=== PATIENT | male | born 1955 | race Caucasian/White ===

== ENCOUNTER 2020-06-04 16:29 | Inpatient (IN) | payer BC ==
[~2020-06-04] VITALS: Ht 180.3 cm; Wt 73.2 kg
[2020-06-04] MEDS ORDERED: REMERON15 M2 PO (17:39)
[2020-06-04] MEDS ORDERED: VENLAFAXINE75 M1 PO (17:39)
[2020-06-04] MEDS ORDERED: ABILIFY2 MG PO (17:39)
[2020-06-04] MEDS ORDERED: ATARAX,VISTARIL50 MG PO (17:40)
[2020-06-04 19:00] VITALS: BP 137/92
[2020-06-04 23:22] VITALS: BP 132/80
[2020-06-05 06:48] LABS: BASO # 0.1 10*3/uL (0.0-0.1); BASO % 1.1 % (0.0-1.0); EOS # 0.1 10*3/uL (0.0-0.4); EOS % 2.4 % (1.0-4.0); HEMATOCRIT 43.4 % (42.0-52.0); LYMPH # 1.4 10*3/uL (1.3-4.4); LYMPH % 29.8 % (27.0-41.0); MEAN CELL VOLUME 86.5 fl (80.0-94.0); MEAN CORPUSCULAR HGB 29.9 pg (27.0-31.0); MEAN CORPUSCULAR HGB CONC 34.6 g/dl (33.0-37.0); MEAN PLATELET VOLUME 10.3 fl (9.6-12.3); MONO # 0.4 10*3/uL (0.1-1.0); MONO % 8.9 % (3.0-9.0); NEUT # 2.6 10*3/uL (2.3-7.9); NEUT % 57.4 % (47.0-73.0); PLATELET COUNT AUTOMATED 209 10*3/uL (130-400); RED BLOOD COUNT 5.02 10*6/uL (4.50-5.90); RED CELL DISTRI WIDTH 11.4 % (0-14.5); WHITE BLOOD COUNT 4.6 10*3/uL (4.8-10.8)
[2020-06-05 06:59] LABS: ALBUMIN 3.7 gm/dl (3.1-4.5); BUN 18 mg/dl (7-24); CHLORIDE 106 mmol/L (98-107); POTASSIUM 3.9 mmol/L (3.5-5.1); SGOT/AST 15 IU/L (3-35); SGPT/ALT 21 U/L (12-78); SODIUM 141 mmol/L (136-145)
[2020-06-05 07:11] LABS: ALKALINE PHOSPHATASE 82 U/L (45-117); CHOLESTEROL 223 mg/dL (<200); CREATININE 0.72 mg/dL (0.70-1.30); HDL CHOLESTEROL 55 mg/dl (40-60); LDL CHOLESTEROL 136 mg/dL (9-159); TOTAL PROTEIN 7.2 gm/dL (6.4-8.2); TRIGLYCERIDES 158 mg/dl (<150); VLDL CHOLESTEROL 32 mg/dL (6-40)
[2020-06-05 07:40] LABS: VITAMIN D, 25-HYDROXY 32.9 ng/mL (30-100)
[2020-06-05 08:00] VITALS: BP 135/77
[2020-06-05 19:45] VITALS: BP 119/71
[2020-06-06 07:05] VITALS: BP 126/83
[2020-06-06 19:29] VITALS: BP 125/72
[2020-06-07 07:45] VITALS: BP 124/88
[2020-06-07 20:00] VITALS: BP 125/74
[2020-06-08 07:24] VITALS: BP 110/59
[2020-06-08 20:21] VITALS: BP 116/73
[2020-06-09 07:22] VITALS: BP 142/79
[2020-06-09 20:00] VITALS: BP 141/78
[2020-06-10 06:43] VITALS: BP 125/56
[2020-06-10 19:49] VITALS: BP 130/75
[2020-06-11 08:00] VITALS: BP 114/70
[2020-06-11 19:36] VITALS: BP 138/78
[2020-06-12 07:32] VITALS: BP 123/60
[2020-06-12 19:47] VITALS: BP 121/73
[2020-06-13 07:27] VITALS: BP 109/64
[2020-06-13 20:00] VITALS: BP 106/60
[2020-06-14 07:26] VITALS: BP 116/62
[2020-06-14 20:00] VITALS: BP 110/57
[2020-06-15 07:51] VITALS: BP 115/66
[2020-06-15 19:50] VITALS: BP 123/68
[2020-06-16 07:44] VITALS: BP 109/69
[2020-06-16 20:00] VITALS: BP 114/68
[2020-06-17 06:43] LABS: BASO # 0.1 10*3/uL (0.0-0.1); BASO % 0.9 % (0.0-1.0); EOS # 0.3 10*3/uL (0.0-0.4); EOS % 5.1 % (1.0-4.0); HEMATOCRIT 38.1 % (42.0-52.0); LYMPH # 1.6 10*3/uL (1.3-4.4); LYMPH % 28.4 % (27.0-41.0); MEAN CELL VOLUME 86.6 fl (80.0-94.0); MEAN CORPUSCULAR HGB 29.1 pg (27.0-31.0); MEAN CORPUSCULAR HGB CONC 33.6 g/dl (33.0-37.0); MEAN PLATELET VOLUME 9.9 fl (9.6-12.3); MONO # 0.6 10*3/uL (0.1-1.0); MONO % 9.9 % (3.0-9.0); NEUT # 3.1 10*3/uL (2.3-7.9); NEUT % 54.5 % (47.0-73.0); PLATELET COUNT AUTOMATED 212 10*3/uL (130-400); RED CELL DISTRI WIDTH 11.7 % (0-14.5); WHITE BLOOD COUNT 5.7 10*3/uL (4.8-10.8)
[2020-06-17 07:03] LABS: ALBUMIN 3.2 gm/dl (3.1-4.5); ALKALINE PHOSPHATASE 80 U/L (45-117); BUN 18 mg/dl (7-24); CHLORIDE 107 mmol/L (98-107); CREATININE 0.73 mg/dL (0.70-1.30); POTASSIUM 3.9 mmol/L (3.5-5.1); SGOT/AST 16 IU/L (3-35); SGPT/ALT 32 U/L (12-78); SODIUM 142 mmol/L (136-145); TOTAL PROTEIN 6.4 gm/dL (6.4-8.2)
[2020-06-17 07:50] VITALS: BP 109/68
[2020-06-17 19:07] VITALS: BP 135/72
[2020-06-18 07:33] VITALS: BP 119/71
[2020-06-18 20:00] VITALS: BP 114/74
[2020-06-19 07:33] VITALS: BP 102/63
[2020-06-19 19:31] VITALS: BP 113/64
[2020-06-20 08:00] VITALS: BP 121/71
[2020-06-20] MEDS ORDERED: FLUVOXAMINE50 MG PO (09:51)
[2020-06-20] MEDS ORDERED: VISTARIL50 MG PO (09:52)
[2020-06-20] MEDS ORDERED: SEROQUEL25 MG PO (11:53)
[2020-06-20] MEDS ORDERED: ATIVAN0.5 MG PO (12:05)
== END 2020-06-20 13:27 | disposition home or self-care (01) | DRG 885 ==
LOC: 3N 16:29
PROVIDERS: Registered Nurse; ADMIT Psychiatry & Neurology Psychiatry; ATTEND Psychiatry & Neurology Psychiatry
DX: F33.3 Major depressive disorder, recurrent, severe with psychotic symptoms (principal); R45.851 Suicidal ideations; E72.20 Disorder of urea cycle metabolism, unspecified; F90.9 Attention-deficit hyperactivity disorder, unspecified type; F41.0 Panic disorder [episodic paroxysmal anxiety]; F42.9 Obsessive-compulsive disorder, unspecified; R00.0 Tachycardia, unspecified; Z20.828 Contact with and (suspected) exposure to other viral communicable diseases; R73.9 Hyperglycemia, unspecified; E78.2 Mixed hyperlipidemia; Z88.1 Allergy status to other antibiotic agents; Z82.49 Family history of ischemic heart disease and other diseases of the circulatory system

== ENCOUNTER 2020-08-10 15:43 | Inpatient (IN) | payer MEDICARE ==
[~2020-08-10] VITALS: Ht 154.9 cm
[~2020-08-10 15:43] MED LIST: ABILIFY2 MG PO; ATARAX,VISTARIL50 MG PO; ATIVAN0.5 MG PO; ATORVASTATIN CA40 M1 PO; CLOMIPRAMINE HC25 MG PO; CLOMIPRAMINE HC50 MG PO; FLUVOXAMINE50 MG PO; KLONOPIN2 M1 PO; PAROXETINE HCL10 MG PO; REMERON15 M2 PO; SEROQUEL25 MG PO; VENLAFAXINE75 M1 PO; VISTARIL50 MG PO
--- NOTE | 2020-08-10 16:10 | NUR ---
GALLO RIOJAS a 65 year old M admitted via wheel chair from the EMERGENCY ROOM as a emergency 72 hr. hold admission. Arrived on unit at 1610. ALLERGIES: AMOXICILLIN. Vital signs are: [id number] 108/59. 98% ROOM AIR The client signed the following forms with stated understanding: Authorization For The Release of Medical Information, Clothing List, Consent and Release Forms/Receipt of Rights, Acknowledgement of Advance Directive Information, Behavioral Health Consent Form, and Informed Consent of Medications. Admitted under the services of Dr. ZORA RAJPUTTHANH. A search was conducted and hazardous articles were removed. Client was oriented to the unit. BARBARA KEEN PT SIGNED ALL CONSENTS EXCEPT VOLUNTARY ADMISSION D/T PINK SLIP. JOSE L SW AWARE OF ADMISSION.
[2020-08-10 16:32] VITALS: BP 108/59
--- NOTE | 2020-08-10 17:56 | NUR ---
HOSPITALIST NUMBER ONE NOTIFIED OF NEW ADMISSION FOR MEDICAL CONSULT. CONSULT TO BE PLACED UNDER .
--- NOTE | 2020-08-10 19:34 | NUR ---
PSYCHOSOCIAL HX COMPLETED THIS DATE
--- NOTE | 2020-08-10 20:16 | NUR ---
STATES HE WAS GIVEN ANAFRANIL IN THE EMERGENCY ROOM. UNABLE TO FIND WERE HE RECIEVED ANY MEDICATION BUT HE INSISTS HE TOOK THEM. WILL NOT GIVE TILL TOMORROW.
[2020-08-10 20:25] VITALS: BP 104/55
--- NOTE | 2020-08-10 21:23 | NUR ---
RESTING SINCE GETTING KLONOPIN.
--- NOTE | 2020-08-11 00:10 | NUR ---
RESIDENT HERE TO SEE CLIENT
--- NOTE | 2020-08-11 01:23 | NUR ---
24 HR chart check completed.
--- NOTE | 2020-08-11 06:15 | NUR ---
SLEPT WELL POST KLONOPIN FOR ANXIETY. SLEPT 8.5 HOURS MOVING SELF IN BED
[2020-08-11 06:17] VITALS: BP 115/68
--- NOTE | 2020-08-11 09:54 | NUR ---
DR. MCCOY ON UNIT TO ASSESS PATIENT.
--- NOTE | 2020-08-11 14:09 | NUR ---
P: INCREASED CONFUSION, CONSTANT WORRY, TEARFUL, DEPRESSED MOOD WITH INCREASED ANXIETY, NOT ABLE TO MAKE DECISIONS REGARDING SELF CARE, PREOCCUPIED WITH MEDICATIONS. PATIENT CONFUSED ABOUT MEDICATIONS AND OF NURSE TALKING TO HIS GIRLFRIEND. PATIENT THINKS NURSE SPOKE WITH HIS COUSIN. I: ONE ON ONE FOR EMOTIONAL SUPPORT, MEDICATION EDUCATION, ENCOURAGE GROUP PARTICIPATION AND REDIRECTION. R: EFFECTIVE. PATIENT IS ALERT TO PERSON, PLACE, TIME AND SITUATION. MEMORY GAPS NOTED WITH CONSTANT WORRY. DENIES HALLUCINATIONS, DELUSIONS, HI/SI OR PAIN. MOOD IS ANXIOUS, DEPRESSED AND HOPELESS/HELPLESS. MEDICAITON COMPLAINT WITH EDUCATION PROVIDED. Q 15 MINUTE SAFETY CHECKS. INDEPENDENT WITH ACTIVITIES OF DAILY LIVING WITH VERBAL DIRECTION. CONTINENT OF BOWEL AND BLADDER. SET UP FOR MEALS, INTAKE ARE GOOD WITH ADEQUATE FLUIDS. AMBULATORY WITH STEADY GAIT. P: CONTINUE TO MONITOR MOOD AND FOR INCREASED CONFUSION; PROVIDE ONE ON ONE FOR EMOTIONAL SUPPORT, REOREINTATION/DIRECTION NEEDED. ENSURE PATIENT OF BEING SAFE.
--- NOTE | 2020-08-11 14:55 | NUR ---
PATIENT COMPLAINING OF A HEADACHE. PRN TYLENOL 650MG PO GIVEN AT THIS TIME.
--- NOTE | 2020-08-11 16:01 | NUR ---
Shift chart check completed.
--- NOTE | 2020-08-11 16:02 | NUR ---
PATIENT CAME UP TO NURSES STATION STATING "I FEEL A LITTLE BIT BETTER" TYLENOL EFFECTIVE.
--- NOTE | 2020-08-11 16:38 | NUR ---
PRN KLONOPIN 2MG PO GIVEN AT THIS TIME FOR INCREASED ANXIETY. PT CONTINUES WITH CONSTANT WORRY, VISIBLY ANXIOUS AND UPSET, TEARFUL AT TIMES. UNABLE TO CALM WITH NONPHARMALOGICAL INTERVENTIONS. WILL MONITOR FOR EFFECT.
--- NOTE | 2020-08-11 18:31 | NUR ---
KLONOPIN MILDLY EFFECTIVE. PT WAS ABLE TO SIT IN DINING ROOM AND WATCH [employer] GAME FOR A WHILE. PT CONTINUES TO ASK STAFF THE SAME QUESTIONS REPEATEDLY STATING "IS THIS ANXIETY?" POSITIVE REINFORCEMENTS AND EMOTIONAL SUPPORT PROVIDED. ENCOURAGED PT TO UTILIZE COPING SKILLS AND DISTRACTION TECHNIQUES.
[2020-08-11 20:00] VITALS: BP 124/65
--- NOTE | 2020-08-11 21:05 | NUR ---
Patient alert and oriented to person,place,time and situation with memory deficits noted at times. Mood depressed,anxious,but cooperative. Denies SI/HI or hallucinations. No s/s of any responding to internal stimuli noted at this time. Patient compliant with HS medications without any difficulty. Patient tearful at times.Provided 1:1 for emotional support. Redirected/reoriented when needed.Plan to continue to encourage medication compliance. Also continue to provide emotional support and continue to redirect/reorient when needed/appropriate. Will continue to monitor moods/behaviors. Q 15 minute safety checks continued and maintained. See [facility] flowsheet for further documentation.
--- NOTE | 2020-08-12 05:24 | NUR ---
Patient slept approx. 8 hours throughout shift. Q 15 minute safety checks continued and maintained.
[2020-08-12 07:34] VITALS: BP 110/59
--- NOTE | 2020-08-12 08:30 | NUR ---
Treatment Plan meeting was held this a.m. with Dr. Traylor, CHELSIE Lee, RN, AT, UNIT RECEPTIONIST-S and Pharmacy Care Coordinator in attendance. Plan for discharge Next Week. Pt. came to [facility] from Home and will return home at discharge.
--- NOTE | 2020-08-12 09:48 | NUR ---
Nursing screen received and chart was reviewed. Patient recently admitted to medical floor with hypotension. Patient d/c to [facility] for medical management. Patient has a PMH of OCD, ADHD, panic disorder and major depressive disorder. If patient has a decline in ADLs, transfers and functional mobility please send OT orders. Thank you. Anupama Pardo OTR/L
--- NOTE | 2020-08-12 09:50 | NUR ---
Met with pt this AM. Pt was visibly anxious and was tearful at times. Pt ruminated on admittance to U vs returning to his home from the [facility] medical floor. Assisted pt in finding the positive of U admission. Pt voiced concern about proper dispensing of his medications when he returns home. Informed pt that this can be managed by medication blister packs from a pharmacy or possibly the nurse [facility] coming to pt's apartment to set-up pt's medication box. Pt voiced concern about his car being parked near the [facility] along the street. Informed pt that this brief writer would make a call about pt's car. Pt then voiced concern about how he would get to his car from [facility] when pt is discharged. Reassured pt that this will be worked out. Pt then voiced concern about his [facility] STOCK CONTROL CLERK being informed about new med changes while pt is in the U. Informed pt that Lydia Quinn STOCK CONTROL CLERK will be provided medication updates prior to pt's discharge. Encouragement and support provided to pt throughout conversation.
--- NOTE | 2020-08-12 10:00 | NUR ---
PT RESTING QUIETLY AT THIS TIME
--- NOTE | 2020-08-12 11:14 | NUR ---
PT RESTING QUIETLY AT THIS TIME
--- NOTE | 2020-08-12 11:35 | NUR ---
PT AWAKE AND IN DINING ROOM AWAITING LUNCH. STATES THAT HE DOES NOT NOTICE ANY SIGNIFICANT CHANGE IN FOCUS OR ANXIETY FROM AM DOSE OF RITALIN. EDUCATED PROVIDED AT THIS TIME. EMOTIONAL SUPPORT PROVIDED AT THIS TIME.
--- NOTE | 2020-08-12 11:43 | NUR ---
PHYSICAL THERAPY Nursing screen received and chart reviewed. Patient transferred from medical floor to U. New PT order required to continue skilled PT services, if warranted. Thank you. Zina Alfaro,PT,DPT
--- NOTE | 2020-08-12 12:15 | NUR ---
PT C/O FEELINGS OF INCREASING SADNESS AND FEELING ALONE. PT PROVIDED WITH EMOTIONAL SUPPORT. PROVIDED WITH 1:1 TO EXPLORE FEELINGS, PT STATES THAT HIS GIRLFRIEND LIVES 45 MINUTES AWAY FROM HIM AND SO HE FEELS ALONE WHICH MAKES HIM SAD. PT STATES THAT HE WILL GO LAY DOWN AND TAKE A NAP BUT "KNOWS HE SHOULDN'T BE SLEEPING ALL DAY". PT EDUCATED ON TREATMENT PLAN, ACKNOWLEDGEMENT OF ADJUSTMENT PERIOD TO BEING HOSPITALIZED, AND PROVIDED WITH REASSURANCE. PT STATES "THANK YOU" AND WALKED TO ROOM TO REST.
--- NOTE | 2020-08-12 13:45 | NUR ---
pt in group with fitness coordinator.
--- NOTE | 2020-08-12 13:46 | NUR ---
Phoned [facility] [employer] and spoke to a dispatcher in regards to the status of pt's car being parked on the street near the [facility]. The dispatcher stated that as long as the car is legally parked, there will be no issues with the car remaining there while pt is in the [facility].
--- NOTE | 2020-08-12 14:58 | NUR ---
pt in group with practical nurse clinical coordinator
--- NOTE | 2020-08-12 15:48 | NUR ---
ASSESSMENT AND 1:1 SPENT A CONSIDERABLE AMOUT OF TIME WITH PT THIS AFTERNOON. PT EXPRESSED ANXIETY OVER THE SAME ISSUES BEFORE BUT PT WAS ABLE TO SIT FOR THE WHOLE TIME AND FOCUS ON OUR CONVERSATION. PT IS STILL RUMINATING AND HAVING INTRUSIVE THOUGHTS BUT NOT BAD HIS PREVIOUS ADMISSION. PT WAS GIVEN POSITIVE REINFORCEMENTS AND HIS SUGGESTED FOCUS IS "I HAVE CHOICES" PT IS AWARE OF NEW TREATMENT PLAN AND GOALS AND THAT IF HE IS UNCOMFORTABLE IN HIS ROOM AND CAN COME OUT, IF HE IS UNCOMFORTABLE IN THE DAYROOM, HE CAN LEAVE, IF HE FEELS TEARFUL HE CAN GO INTO A ROOM TO CRY FOR A LITTLE BIT, ETC. PT WAS GIVEN A NEW TESTAMENT AND A TABLET TO USE DISTRACTION FOR THIS EVENING.
--- NOTE | 2020-08-12 17:17 | NUR ---
PT GIVEN KLONOPIN 1MG PER PRN ORDER FOR FEELINGS OF "NERVOUSNESS". PT STATES HE IS ALSO TRYING TO READ AND WATCH MOVIES TO HELP DISTRACT HIM.
[2020-08-12 19:03] VITALS: BP 114/59
--- NOTE | 2020-08-12 21:12 | NUR ---
Patient alert and oriented to person,place,time and situation with memory deficits noted at times. Mood depressed,anxious,isolative to room,but cooperative. Denies SI/HI or hallucinations. No s/s of any responding to internal stimuli noted at this time. Patient compliant with HS medications without any difficulty. Patient tearful at times.Provided 1:1 for emotional support. Redirected/reoriented when needed.Plan to continue to encourage medication compliance. Also continue to provide emotional support and continue to redirect/reorient when needed/appropriate. Will continue to monitor moods/behaviors. Q 15 minute safety checks continued and maintained. See [facility] flowsheet for further documentation.
--- NOTE | 2020-08-12 22:03 | NUR ---
Patient resting comfortably in bed at this time.
--- NOTE | 2020-08-12 23:21 | NUR ---
Patient continues to be resting comfortably in bed with eyes closed.
--- NOTE | 2020-08-13 00:29 | NUR ---
Patient continues to rest comfortably in bed with eyes closed.
--- NOTE | 2020-08-13 01:12 | NUR ---
Patient resting comfortably in bed with eyes closed.
--- NOTE | 2020-08-13 02:00 | NUR ---
Patient resting comfortably in bed with eyes closed.
--- NOTE | 2020-08-13 03:05 | NUR ---
Patient resting comfortably with eyes closed.
--- NOTE | 2020-08-13 04:15 | NUR ---
Patient continues to rest comfortably in bed with eyes closed.
--- NOTE | 2020-08-13 05:12 | NUR ---
Patient continues to rest comfortably in bed with eyes closed.
--- NOTE | 2020-08-13 05:54 | NUR ---
Patient slept approx. 8.5 hours throughout shift. Q 15 minute safety checks continued and maintained.
[2020-08-13 07:44] VITALS: BP 130/68
--- NOTE | 2020-08-13 08:00 | NUR ---
PT C/O BEING "SO SAD". PT IS VERY TEARFUL. PROVIDED WITH EMOTIONAL SUPPORT. DISCUSSED DEPRESSION AND IT'S PROCESS. PT VERBALIZES UNDERSTANDING, STATES HE WOULD LIKE TO GO INTO DINING ROOM AND WATCH A MOVIE WITH PEERS. WILL CONTINUE TO MONITOR Q15 MIN PER POLICY.
--- NOTE | 2020-08-13 08:30 | NUR ---
Treatment Plan meeting was held this a.m. with Dr. Traylor via telephone, ROLLER COASTER DESIGNER Rosa, RN, AT, FOUNDRY HELPER-S and Customer Solutions Coordinator in attendance. Plan for discharge Next Week. Pt. will return home at discharge.
--- NOTE | 2020-08-13 09:00 | NUR ---
PT ATTEMPTED TO GO WATCH A MOVIE WITH PEERS IN GROUP ROOM, SAT ACROSS FROM A PEER WHO UPSET HIM, PT BECAME VERY TEARFUL STATING "I DIDN'T WNAT TO MAKE HER MAD". PT ENCOURAGED TO PROVIDE PEER WITH SPACE AND SIT IN ARM CHAIR IN THE BACK OF THE ROOM. PT IN AGREEMENT. WENT INTO DAY ROOM, SAT AND DRANK FLUIDS. WILL CONTINUE TO MONITOR Q15 MIN PER POLICY
--- NOTE | 2020-08-13 10:52 | NUR ---
Met with pt this AM individually. Pt's anxiety was slightly improved. He did have short periods of time when he was tearful. Pt was tearful when he spoke of how he used to be when he was able to enjoy life with his girlfriend Krys. Provided support and affirmed to pt that he will have good times again in his future. Pt voiced concern about being in the activity room with a patient that was being unkind to him. Confirmed to pt that pt has a choice to be in that room or to go to his room or a quiet room. Pt voiced understanding. Continued to provide support and reassurance to pt.
--- NOTE | 2020-08-13 11:03 | NUR ---
Left a voicemail message for [facility] case management director Tate Wheat. Await a return call.
--- NOTE | 2020-08-13 11:37 | NUR ---
AM GROUP PT ATTENDED MORNING GROUP THERAPY BUT STATED THAT HE WAS UNABLE TO PARTICIPATE BUT WOULD OBSERVE. PT CONTINUALLY EXPRESSED ANXIOUSNESS BUT HAD NO OUTWARD SYMPTOMS AND DID NOT WEEP LIKE HE DID YESTERDAY. PT WAS RUMINATING AND WAS UNABLE TO PARTICIPATE IN THE GROUP CONVERSATION. PT BEGAN PICKING OUT THINGS IN THE ROOM THAT WERE "BOTHERING" HIM, THE WORDS ON THE WALL, THE LIGHT FIXTURE, THE GLARE ON THE TV, ETC. PT WAS GIVEN THE CHOICE TO LEAVE THE ROOM IF IT WAS TOO OVERWHELMING. PT LEFT THE DAYROOM AND DID NOT RETURN.
--- NOTE | 2020-08-13 15:43 | NUR ---
PM GROUP PT ATTENDED AFTERNOON GROUP THERAPY OFF AND ON. PT SAT TO PAINT WITH WATERCOLORS AT A TABLE WITH PEERS AND ASKED, "CAN YOU AND I GO INTO THE OTHER ROOM AND LOOK AT THE BIBLE VERSES LIKE WE DID LAST TIME" PT FOCUSED ON THIS AND WOULD STOP PAINTING, LEAVE TO GO LAY DOWN, RETURN IN A FEW MINUTES AND ASK AGAIN. PT WAS TOLD THAT WE COULD DO THIS THE LAST FEW MINUTES OF GROUP BUT THAT IT WOULD BE IN THE DAYROOM. PT ACCEPTED THIS AND WAS ABLE TO FOCUS WHEN REMINDED. PT CONTINUALLY RUMINATES BUT EXHIBITED NO SIGNS OF ANXIETY OR CRYING.
--- NOTE | 2020-08-13 17:10 | NUR ---
PT'S TEARFULNESS AND NERVOUSNESS EASILY REDIRECTED WITH DIVERSIONAL ACTIVITIES. PT WILL BECOME TEARFUL FOR BRIEF TIME, ABLE TO VERBALIZE FEELINGS AND THOUGHT PROCESSES. PT STATES THAT HE REMAINS "SO SAD", BUT AGREES TO GIVE MEDICATION AND TREATMENT PLAN A CHANCE. EDUCATED ON BOTH. DOES STATE THAT HE DOES NOT BELIEVE HE HAS NOTICED ANY BENEFITS SUCH INCREASE IN FOCUS, ATTENTION, OR A DECREASE IN ANXIOUSNESS FROM RITALIN. PT IN DINING ROOM EATING SUPPER WITH PEERS. MONITOR Q15 MIN PER POLICY FOR SAFETY
[2020-08-13 19:08] VITALS: BP 120/73
--- NOTE | 2020-08-13 21:36 | NUR ---
Patient alert and oriented to person,place,time and situation with memory deficits noted at times. Mood depressed,anxious,isolative to room,but cooperative. Denies SI/HI or hallucinations. No s/s of any responding to internal stimuli noted at this time. Patient compliant with HS medications without any difficulty. Patient tearful at times.Provided 1:1 for emotional support. Redirected/reoriented when needed.Plan to continue to encourage medication compliance. Also continue to provide emotional support and continue to redirect/reorient when needed/appropriate. Will continue to monitor moods/behaviors. Q 15 minute safety checks continued and maintained. See [facility] flowsheet for further documentation.
--- NOTE | 2020-08-14 05:50 | NUR ---
Patient slept approx. 8 hours throughout shift. Q 15 minute safety checks continued and maintained.
[2020-08-14 07:28] VITALS: BP 131/78
--- NOTE | 2020-08-14 08:30 | NUR ---
Treatment Plan meeting was held this a.m. with Dr. Traylor via telephone, MATT Lee RN, AT, PHOSPHORIC ACID OPERATOR-S and Log Rafter. Plan for discharge Next week. Pt. will return home at discharge.
--- NOTE | 2020-08-14 11:44 | NUR ---
AM GROUP/LIGHT THERAPY AND DISCUSSION PT ATTENDED MORNING GROUP THERAPY AND PARTICIPATED IN ALL ACTIVITIES. PT WAS LESS ANXIOUS AND ABLE TO PARTICIPATE IN THE DISCUSSION AND FOCUS ON A CRAFT. PT WOULD OCCATIONALLY TRY TO TALK ABOUT HIS SADDNESS AND INTRUSIVE THOUGHTS BUT WAS REDIRECTED INTO CONCENTRATING ON THE TASK AT HAND. DESPITE SAYING THAT HE COULD NOT FOCUS, PT DEMONSTRATED OTHERWISE.
--- NOTE | 2020-08-14 15:22 | NUR ---
Met with pt individually this AM and again early in the afternoon. Pt was exhibiting improvement from his anxiety - able to sit still, very brief episodes of tearfulness, ability to converse and problem solve, and displaying a calm affect. Pt would ruminate on his past experiences with his girlfriend Krys and then state that he was sad because he won't have those experiences again. Provided support to pt and reassured pt that he will have future experiences that he will enjoy. Pt spoke of things he would like to accomplish now that he is retired. Praised pt for having goals for his future. Continued to offer support and affirmations to pt. Pt's response was positive.
--- NOTE | 2020-08-14 15:31 | NUR ---
PRN TYLENOL 650MG PO GIVEN AT THIS TIME PER PT REQUEST FOR C/O HEADACHE RATED LEVEL "2 OR 3" OUT OF 10 ON PAIN SCALE. WILL MONITOR FOR EFFECT.
--- NOTE | 2020-08-14 15:44 | NUR ---
PM GROUP/LEISURE INTERESTS PT ATTENDED AFTERNOON GROUP THERAPY AND PARTICIPATED BY WORKING WITH HIS SCRIPTURES. PT STILL RUMINATES BUT IS EASILY REMINDED TO "STAY IN TODAY". PT WAS FAR LESS WORRYSOME, WAS ABLE TO SIT FOR THE ENTIRE GROUP AND WORK WITH FOCUS. P
--- NOTE | 2020-08-14 18:05 | NUR ---
P- PT REPORTS CONTINUED FEELINGS OF DEPRESSION AND ANXIETY. HOWEVER, PT APPEARS TO BE MORE CALM, LESS FRETFUL AND TEARFUL, PT'S THOUGHT PROCESSES APPEAR MORE CLEAR AND ORGANIZED. I- ORIENTATION, MOOD AND BEHAVIORS ASSESSED. ASSESSED PT FOR SI/HI, INTENT OR PLAN. ASSESSED FOR S/S HALLUCINATIONS, PARANOIA AND/OR DELUSIONS. MEDICATIONS ADMINISTERED PER PHYSICIAN'S ORDERS. POSITIVE AFFIRMATIONS AND EMOTIONAL SUPPORT PROVIDED. ENCOURAGED PT TO ATTEND AND PARTICIPATE IN [place] GROUPS AND ACTIVITIES. R- PT IS ALERT AND ORIENTED X4. MEMORY APPEARS TO BE INTACT. RESPS EASY AND EVEN ON ROOM AIR. PT REPORTS CONTINUED DEPRESSED MOOD WITH ANXIETY, HOWEVER, PT APPEARS MUCH MORE CALM AND ORGANIZED. LESS FRETFUL AND TEARFUL. PT IS ABLE TO EXPRESS SELF MORE CLEARLY AND IS NOT NOTED TO BE REPETITIVE HE WAS PREVIOUSLY. PT PROVIDED WITH POSITIVE AFFIRMATIONS AND EMOTIONAL SUPPORT WHICH PT RECIEVES WELL. PT DENIES SI/HI, INTENT OR PLAN. PT DENIES HALLUCINATIONS, NO RESPONSE TO INTERNAL STIMULI NOTED. NO PARANOIA OR DELUSIONS NOTED. PT IS MEDICATION COMPLIANT WITHOUT DIFFICULTY. KLONOPIN 0.5MG PO GIVEN AT 1722 PER PT REQUEST FOR C/O ANXIETY. APPEARS TO BE EFFECTIVE. PT VOICES NO FURTHER C/O AT THIS TIME. NO DISTRESS NOTED. P- PLAN TO CONTINUE CURRENT TREATMENT, CONTINUE TO MONITOR MOOD AND BEHAVIORS. PROVIDE APPROPRIATE REORIENTATION AND REDIRECTION NEEDED. CONTINUE TO ENCOURAGE MEDICATION COMPLIANCE WELL GROUP ATTENDANCE AND PARTICIPATION.
[2020-08-14 19:08] VITALS: BP 114/70
[2020-08-14 19:24] VITALS: BP 114/70
--- NOTE | 2020-08-15 05:41 | NUR ---
PATIENT OBSERVED ON Q 15 MIN CHECKS TO HAVE SLEPT APPROX 9 HOURS UNINTERRUPTED. NO DISTRESS NOTED.
[2020-08-15 07:30] VITALS: BP 138/72
--- NOTE | 2020-08-15 08:30 | NUR ---
Treatment Plan meeting was held this a.m. with Dr. Traylor, RN, AT, SHADE BANDER-S and Regulatory Process Manager in attendance. Plan for discharge Next Week. Pt. will return Home at discharge and [facility].
--- NOTE | 2020-08-15 11:47 | NUR ---
AM GROUP PT ATTENDED MORNING GROUP THERAPY AND PARTICIPATED BY READING THE NEWSPAPER. PT ATTEMPTED SEVERAL TIMES TO RUMINATE AND DISCUSS HIS "SADDNESS" OF YESTERDAY BUT WAS EASILY REDIRECTED.
--- NOTE | 2020-08-15 12:29 | NUR ---
P: PT ANXIOUS AND TEARFUL AT TIMES, STATING "I AM JUST AFRAID, I M NOT SURE WHAT TO DO, I KNOW I CAN'T CONTINUE TO DEPEND UPON A PLACE LIKE THIS, BUT ITS SO OVERWHELMING WHEN I GO HOME, I HAVE TO MAKE ALL THE DECISIONS TO WHAT TO HAVE FOR LUNCH AND DINNER AND BREAKFAST." PT REPORTS THINKING ABOUT SUICIDE TO DR BLAKELY. I: PROVIDE EMOTIONAL SUPPORT AND 1:1 FOR PT TO VOICE FEELINGS, ENCOURAGE MED COMPLIANCE AND PROVIDE MED EDUCATION, CONTINUE TO PROVIDE POSITIVE REASSURANCE, ENCOURAGE PT TO VOICE SUICIDAL THOUGHTS AND VERBALLY CONTRACT FOR SAFETY. R: PT ALERT TO PERSON, PLACE, TIME AND SITUATION. PT MED COMPLIANT WITHOUT DIFFICULTY, MED EDUCATION PROVIDED. PT VISIBLY LESS ANXIOUS, 1:1 AND POSITIVE REASSURANCE EFFECTIVE. PT DENIES ANY SUICIDAL THOUGHTS AT THIS TIME, VERBALLY CONTRACTS FOR SAFETY IF SUCH THOUGHTS ARISE. NO HALLUCINATIONS OR DELUSIONS NOTED. PT AMBULATORY THROUGHOUT UNIT, GAIT STEADY.PT CONTINENT OF BOWEL AND BLADDER. P: MONITOR PT BEHAVIORS ON Q15 MIN SAFETY CEHCKS, ENCOURAGE MED COMPLAINCE AND PROVIDE MED EDUCATION, ENCOURAGE GROUP PARTICIPATION AND SOCIALIZATION, PROVIDE EMOTIONAL SUPPORT AND 1:1 FOR PT TO VOICE FEELINGS, CONTINUE TO PROVIDE POSITIVE REASSURANCE, ENCOURAGE PT TO VOICE SUICIDAL THOUGHTS AND VERABLLY CONTRACT FOR SAFETY IF SUCH THOUGHTS ARISE.
--- NOTE | 2020-08-15 15:23 | NUR ---
pt c/o haeadche requested tylenol. pt medicated with tylenol 650 mg po prn per orders. will continue to monitor
--- NOTE | 2020-08-15 15:51 | NUR ---
PM GROUP/FUN AND GAMES PT ATTENDED AFTERNOON GROUP THERAPY AND PARTICIPATED IN PUTTING THE JIGSAW PUZZLE TOGETHER AND WORKING WITH HIS SCRIPTURES. PT MADE A POINT OF SAYING, "VIRAL, WHEN YOU DO YOUR NOTES ON THE PATIENTS, WILL YOU WRITE HOW NERVOUS I WAS TODAY AND HOW I CAN'T FOCUS ON ANYTHING HARDLY?" I EXPLAINED TO PT THAT I WRITE MY BEST JUDGMENT ON WHAT I OBSERVE. PT WAS CONTENT WITH THAT AND SAT FOR THE REMAINING HOUR FOCUSED AND ON TASK. PT WAS NOT TEARFUL WHEN I LEFT GROUP THIS AFTERNOON BEFORE. PT IS TRENDING TOWARDS IMPROVEMENT, NOT TEARFUL OR UNABLE TO FOCUS.
--- NOTE | 2020-08-15 17:30 | NUR ---
NO FURTHER C/O HEADACHE NOTED
[2020-08-15 20:00] VITALS: BP 104/72
--- NOTE | 2020-08-15 23:01 | NUR ---
P-ANXIETY. I-PROVIDE 1:1 WITH THERAPEUTIC INTERVENTIONS. ENCOURAGE USE OF COPING SKILLS AND LOW STIMULI ENVIRONMENTS TO HELP CALM. ENCOURAGE MEDICATION COMPLIANCE AND EDUCATE. MONITOR SLEEP. R-PATIENT ALERT AND ORIENTED X4. PT INTERACTIVE WITH PEERS THIS HS, SAT IN DINING ROOM AND PARTICIPATED IN PUTTING A PUZZLE TOGETHER. PT STATED HE WAS DOING OKAY TODAY BUT WAS STARTING TO GET ANXIOUS BUT UNDERSTANDS THAT THE MEDICATIONS TAKE TIME TO WORK AND HE HAS TO WORK MORE ON HIS COPING SKILLS. PT OTHERWISE, CALM, PLEASANT. PT DENIES SI/HI, HALLUCINATIONS, OR PAIN. PT MEDICATION COMPLIANT WITHOUT DIFFICULTY AFTER REVIEW. PT AMBULATORY WITH STEADY GAIT, INDEPENDENT IN ADLS, CONTINENT OF BOWEL AND BLADDER, NO DISTRESS NOTED. P-CONTINUE TO MONITOR MOOD AND BEHAVIORS. MAINTAIN Q 15 MIN CHECKS AND PRN FOR SAFETY.
--- NOTE | 2020-08-16 06:16 | NUR ---
PATIENT SLEPT APPROX 8 HOURS THIS SHIFT UNINTERRUPTED. NO DISTRESS NOTED.
--- NOTE | 2020-08-16 06:56 | NUR ---
24 HOUR CHART CHECK COMPLETED.
[2020-08-16 07:42] VITALS: BP 135/90
--- NOTE | 2020-08-16 08:30 | NUR ---
Treatment Plan meeting was held this a.m. with Dr. Traylor via telephone, ASSEMBLER EQUIPMENT Rosa, RN, AT, HELICOPTER DISPATCHER-S and Closing Coordinator in attendance. Plan for discharge Next week. Pt. will return home at discharge.
--- NOTE | 2020-08-16 11:39 | NUR ---
AM GROUP PT ATTENDED MORNING GROUP THERAPY AND PARTICIPATED IN ALL ACITIVITES. DESPITE PT STATING THAT HE WAS UNABLE TO CONCENTRATE, PT SAT AND DID WORK WITH NO PROBLEM. PT WAS ABLE TO PARTICIPATE IN CONVERSATION WITH A MALE PEER WITHOUT EXPRESSING SADDNESS, ANXIETY, OR DEPRESSION. PT ATTEMPTED THESE TOPICS WITH THIS MANAGER LEGAL BUT WAS IMMEDIATELY REDIRECTED.
--- NOTE | 2020-08-16 12:08 | NUR ---
Met with pt early this AM. Pt stated that he was feeling anxious and sad. Pt attempted to be tearful but it was short lived as this technical report writer would direct pt to a topic. Offered affirmations to pt and encouragement. Pt responded well to this.
--- NOTE | 2020-08-16 15:39 | NUR ---
PM GROUP/GRATITUDE PT ATTENDED AFTERNOON GROUP THERAPY AND PARTICIPATED IN ALL ACTIVITIES. PT ATTEMPTED TO RUMINATE AND DISCUSS SADDNESS BUT WAS IMMEDIATELY REDIRECTED. PT EXHIBITED NO TEARFULNESS OR SIGNS OF ANXIETY WHILE IN GROUP.
--- NOTE | 2020-08-16 16:45 | NUR ---
PT ALERT TO PERSON, PLACE, TIME AND SITUATON. PT MED COMPLIANT WITHOUT DIFFICULTY, MED EDUCATION PROVIDED. PT REPORTS FEELING ANXIOUS AT TIMES, WILL CALM ONCE POSITIVE RE-ENFORCEMENT AND REASSURANCE PROVIDED. PT QUESTIONS STAFF ON HOW THEY FEEL HE IS DOING AND IF HE DOING THE RIGHT THING. NO HALLUCINATIONS OR DELUSIONS NOTED. PT DENIES ANY SUICIDAL THOUGHTS, VERBALLY CONTRACTS FOR SAFETY IF SUCH THOUGHTS ARISE. PT AMBULATORY THROUGHOUT UNIT, GAIT STEADY. PT CONTINENT OF BOWEL AND BLADDER. PLAN IS TO MONITOR PT BEHAVIORS ON Q15 MIN SAFETY CHECKS, ENCOURAGE MED COMPLIANCE AND PROVIDE MED EDUCATION, CONTINUE TO PROVIDE POSITIVE REASSURANCE AND RE-ENFORCEMENT, PROVIDE EMOTIONAL SUPPORT AND 1:1 FOR PT TO VOICE FEELINGS.
[2020-08-16 19:08] VITALS: BP 106/69
--- NOTE | 2020-08-16 21:12 | NUR ---
24 HR chart check completed.
--- NOTE | 2020-08-17 00:50 | NUR ---
ALERT AND ORIENT X4. PLEASANT MOSTLY AND ENJOYS INTERACTION WITH STAFF. BECOMES ANXIOUS AND WEEPY. CALMS DOWN WITH POSITIVE REINFORCEMENT AND REASSURANCE THAT HE IS DOING BETTER AND THE RIGHT THING. NO SI/HI. NO DELUSIONS. CONTRACTED FOR SAFETY. AMBULATES FREELY ON UNIT WITH A STEADY GAIT. CONT OF BOWEL AND BLADDER. WILL CONTINUE TO ENCOURAGE 1:1 AND PROVIDE POSITIVE REINFORCEMENT. IS MED COMPLIANT. WILL MONITOR MOOD AND BEHAVIOR AND MAINTAIN 15 MIN SAFETY CHECKS.
--- NOTE | 2020-08-17 06:06 | NUR ---
PATIENT SLEPT OVER 8 HOURS LAST NIGHT
[2020-08-17 07:52] VITALS: BP 106/64
--- NOTE | 2020-08-17 10:15 | NUR ---
DR KEN ON UNIT TO ASSESS PT, UPDATE PROVIDED.
--- NOTE | 2020-08-17 12:39 | NUR ---
PT ALERT TO PERSON, PLACE, TIME AND SITUATION. PT MED COMPLIANT WITHOUT DIFFICULTY, MED EDUCATION PROVIDED. PT CALM, MOOD IS STABLE AT THIS TIME. PT REPORTS FEELING BETTER. NO HALLUCINATIONS OR DELUSIONS NOTED. PT DENIES ANY SUICIDAL THOUGHTS OR BEHAVIORS, VERBALLY CONTRACTS FOR SAFETY IF SUCH THOUGHTS ARISE. PT SPENT MOST OF THE MORNING IN THE DINING ROOM WITH MALE PEERS CONVERSING AND COLORING. PT CONTINENT OF BOWEL AND BLADDER. PLAN IS TO MONITOR PT BEHAVIORS ON Q15 MIN SAFETY CHECKS, ENCOURAGE MED COMPLIANCE AND PROVIDE MED EDUCATION, PROVIDE EMOTIONAL SUPPORT AND 1:1 FOR PT TO VOICE FEELINGS, CONTINUE TO PROVIDE POSITIVE RE-ENFORCEMENTS AND REASSURANCE.
[2020-08-17 20:00] VITALS: BP 107/80
--- NOTE | 2020-08-18 00:56 | NUR ---
P-ANXIOUS I-REDIRECTION WITH 1:1 THERAPEUTIC INTERVENTIONS AND PRESENT REALITY. EDUCATE AND ENCOURAGE MEDICATION COMPLIANCE R-PATIENT MEDICATION COMPLIANT AT HS. PATIENT PROVIDED NOURISHMENT AND FLUIDS AT HS. PATIENT INTERACTING WITH PEERS IN DINING AREA. PATIENT ANXIOUS WHEN ATTEMPTING TO CALL JC MCGOVERN. PATIENT UPSET WHEN JC MCGOVERN DID NOT ANSWER PHONE. PATIENT REDIRECTED AND ABLE TO CALM DOWN. PATIENT WITH NO ANY HALLUCINATIONS OR DELUSIONS. PATIENT WITH NO HOMICIDAL OR SUICIDAL IDEATIONS. P-CONTINUE TO ENCOURAGE MEDICATION COMPLIANCE, CONTINUE TO PRESENT REALITY, ENCOURAGE GROUP THERAPY WHILE AWAKE
--- NOTE | 2020-08-18 06:44 | NUR ---
PATIENT SLEPT 7 HOURS OF UNINTERRUPTED SLEEP THROUGHOUT SHIFT. Q 15 MINUTE CHECKS MAINTAINED. 24 HR chart check completed.
--- NOTE | 2020-08-18 06:45 | NUR ---
PATIENT SLEPT >8 HOURS OF UNINTERRUPTED SLEEP THROUGHOUT SHIFT. Q 15 MINUTE CHECKS MAINTAINED. 24 HR chart check completed.
[2020-08-18 07:18] VITALS: BP 127/62
--- NOTE | 2020-08-18 10:48 | NUR ---
DR MARIANO ON UNIT TO ASSESS PT, UPDATE PROVIDED.
--- NOTE | 2020-08-18 10:48 | NUR ---
DR MARIANO ON UNIT TO ASSESS PT, UPDATE PROVIDED.
--- NOTE | 2020-08-18 13:11 | NUR ---
P: PT REPORTS FEELING ANXIOUS STATING "I'M JUST AFRAID OF THE OUTSIDE, IT'S SO DREARY, AND THE WIND IS BLOWING AND IT'S RAINING AND THEN I THINK ABOUT MY CAR AND DRIVING HOME." I: PROVIDE EMOTIONAL SUPPORT AND 1:1 FOR PT TO VOICE FEELINGS, ENCOURAGE MED COMPLIANCE AND PROVIDE MED EDUCATION, ENCOURAGE PT TO UTILIZE PREVIOUS LEARNED COPING SKILLS, ENCOURAGE PT TO PARTICIPATE IN GROUPS/ACTIVITES AND USE DIVERSIONAL ACTIVITIES TO TAKE HIS MIND OF HIS WORRIES, PROVIDE LOW STIMULATION ENVIRONMENT FOR PT TO CALM, PROVIDE POSITIVE RE-ENFORCEMENTS AND REASSURANCE R: PT ALERT TO PERSON, PLACE, TIME AND SITUATION. PT MED COMPLIANT WITHOUT DIFFICULTY, MED EDUCATION PROVIDED. PT CALM, CONTINUES TO REPORT FEELING ANXIOUS AT TIMES. THIS NURSE PROVIDED POSITIVE REASSURANCE AND PT STATED "BUT WHY AM I AFRAID? ITS JUST SO DREARY AND I DON'T KNOW WHAT TO DO, I NEED TO DRIVE FROM HERE WHEN IT'S TIME TO GO BUT I'M AFRAID. DON'T YOU HAVE A PSYCHIATRIST FOR ME TO TALK TO?" THIS NURSE ADVISED PT THAT THE PRINTED CIRCUIT BOARD PANELS TRIMMER WAS HERE EARLIER TODAY AND HE SPOKE WITH HER, PT STATED "WELL OK I'LL GUESS I'LL TALK TO YOU THEN." NURSE PROVIDED EMOTIONAL SUPPORT AND 1:l FOR PT TO VOICE FEELINGS, PT STATED "OK I'M GOING TO TRY AND LAY DOWN NOW. PT DENIES ANY HALLUCINATIONS OR DELUSIONS. PT DENIES ANY SUICIDAL THOUGHTS AT THIS TIME, STATED "WELL MAYBE I WAS THINKING ABOUT SUICIDE EARLIER TODAY, BUT I AM SO AFRAID." PT DENIES PLAN OR INTENT. PT AMBULATORY THROUGHOUT UNIT, GAIT STEADY. PT CONTINENT OF BOWEL AND BLADDER. PT SHOWERED THIS SHIFT. P: MONITOR PT BEHAVIORS ON Q15 MIN SAFETY CHECKS, ENCOURAGE MED COMPLIANCE AND PROVIDE MED EDUCATION, ENCOURAGE PT TO UTILIZE COPING SKILLS AND DIVERSIONAL ACTIVITES, ENCOURAGE GROUP PARTICIPATION AND SOCIALIZATION, CONTINUE TO PROVIDE POSITIVE RE-ENFORCEMENTS AND REASSURANCE, PROVIDE EMOTIONAL SUPPORT AND 1:1 FOR PT TO VOICE FEELINGS,
[2020-08-18 19:27] VITALS: BP 117/69
--- NOTE | 2020-08-18 19:30 | NUR ---
Patient sitting in dining room with peers. Respirations easy and regular. Vital signs stable. No overt distress. JOSÉ MIGUEL DEL RIO
--- NOTE | 2020-08-18 20:08 | NUR ---
PT STATES HE IS "A LITTLE BIT NERVOUS" PT ASSESSED FOR ORIENTATION, MOOD, AND AFFECT. ASSESSED FOR SI/HI. ASSESSED FOR HALLUCINATIONS AND DELUSIONS. ADMINISTERED MEDICATIONS PER ORDERS. ENCOURAGED TO CONSUME HS SNACK AND FLUIDS. EMOTIONAL SUPPORT AND CALM 1:1 PROVIDED. PT ALERT, ORIENTED X4. MOOD IS DEPRESSED, AFFECT IS BLUNTED. PT DENIES SI/HI, DOES STATE THAT HE IS "NERVOUS TODAY". PT DENIES HALLUCINATIONS AND DELUSIONS. PT CONSUMED 100%HS SNACK AND 240CC FLUIDS. PT RECEPTIVE TO EMOTIONAL SUPPORT AND 1:1, HOWEVER, PT STATES THAT HE "IS TRYING TO MAKE IT LOOK LIKE HE IS HAVING A GOOD TIME" REGARDING PEER INTERACTION OF MUSIC AND PLAYING JENGA. PT EDUCATED ON SMALL STEPS TOWARDS FEELING BETTER. WILL CONTINUE TO PROVIDE EMOTIONAL SUPPORT APPROPRIATE. WILL CONTINUE TO ENCOURAGE INTERACTION WITH PEERS AND STAFF. WILL CONTINUE TO MONITOR Q15 MIN PER POLICY FOR SAFETY.
--- NOTE | 2020-08-18 22:49 | NUR ---
The patient has no complaints and is resting comfortably. JOSÉ MIGUEL DEL RIO
--- NOTE | 2020-08-18 22:50 | NUR ---
24 HR chart check completed.
--- NOTE | 2020-08-19 06:53 | NUR ---
PATIENT SLEPT >8 HOURS OF INTERRUPTED SLEEP THROUGHOUT SHIFT. Q 15 MINUTE CHECKS MAINTAINED. 24 HR chart check completed.
[2020-08-19 07:50] VITALS: BP 110/74
--- NOTE | 2020-08-19 09:19 | NUR ---
CONNIE IQBAL CNP ON UNIT TO ASSESS PATIENT.
--- NOTE | 2020-08-19 11:13 | NUR ---
P: PATIENT REPORTS BEING ANXIOUS ABOUT GOING HOME AND HAVING A ROUTINE, BEING BY HIMSELF. PATIENT PREOCCUPIED THE DISCHARGE. I: ONE ON ONE FOR EMOTIONAL SUPPORT, POSITIVE REINFORCEMENT PROVIDED. ENCOURAGE PATIENT TO CONTINUE ROUTINE SCHEDULE LIKE THE ONE PROVIDED HERE. PATIENT INSTRUCTION AT THE TIME OF DISCHARGE PATIENT WOULD HAVE FOLLOW UP APPOINTMENT WITH PRIMARY CARE AND PSYCHIARTY PROVIDED. R: EFFECTIVE. PATIENT STILL CONTINUES TO BE UNSURE, CONTINUE TO ENCOURAGE PATIENT TO FOLLOW ROUTINE AND PROVIDE EMOTIONAL SUPPORT NEEDED. PATIENT IS ALERT TO PERSON, PLACE, TIME AND SITUATION; ABLE TO VOICE NEEDS. MOOD IS ANXIOUS; STATES HE IS FEELING BETTER, NO LONGER FEELING DEPRESSED. DENIES HALLUCINATIONS, DELUSIONS, HI/SI OR PAIN. MEDICATION COMPLAINT WITH EDUCATION PROVIDED. Q 15 MINUTE SAFETY CHECKS MAINTAINED. INDEPENDENT WITH ACTIVITIES OF DAILY LIVING, CONTINENT OF BOWEL AND BLADDER, SET UP FOR MEALS, INTAKES ARE GOOD WITH ADEQUATE FLUIDS. PATIENT SHOWERED WITH MORNING. AMBULATORY WITH STEADY GAIT. P: CONTINUE TO MONITOR MOOD. PROVIDE ONE ON ONE FOR EMOTIONAL SUPPORT AND POSITIVIE REINFORCEMENT WITH SELF CARE AND MAKING OWN DECISIONS.
--- NOTE | 2020-08-19 11:30 | NUR ---
Lengthy conversation with pt's case supervisor Tate Wheat. Discussed pt's status prior to pt's current U admission. Tate shared about the approach that he was taking with pt and the interventions that he was using. Discussed discharge needs. The plan is for pt to return home with [facility] will also be discussed with pt.
--- NOTE | 2020-08-19 11:47 | NUR ---
AM GROUP PT ATTENDED MORNING GROUP THERAPY AND PARTICIPATED BY DISCUSSING HIS TREATMENT PLAN WITH THIS TOP TILE DECORATOR. PT WAS CONFRONTED WITH THE REALITY THAT HE WOULD HAVE TO GO HOME AND COULD NOT STAY ON THIS UNIT INDEFINITELY. PT WAS DESPERATE TO FIND "WAYS" TO STAY AND KEPT REPEATED, "YEAH, BUT WHAT IF A PATIENT NEEDS TO STAY LONGER? THEY CAN RIGHT?" PT WAS TOLD THAT WE ARE A STABILIZATION UNIT, WHAT THAT MEANT, AND THAT WE COULD ONLY DO SO MUCH FOR HIM AND THE REST WAS UP TO HIM. PT BECAME ANXIOUS BECAUSE HE WASN'T DOING " GOOD I DID BEFORE" AND ATTEMPTED TO RUMINATE. PT WAS GIVEN POSITIVE REINFORCEMENTS THROUGHOUT AND REMINDED OF COPING STRATEGIES FOR AT HOME.
--- NOTE | 2020-08-19 12:02 | NUR ---
THIS NURSE CALLED KITCHEN STAFF TO REQUEST A NEW TRAY DUE TO THE CHICKEN NOT BEING FULLY COOKED. CHICKEN CHECKED BY 2 STAFF MEMBERS.
--- NOTE | 2020-08-19 15:22 | NUR ---
Individual time spent with pt this afternoon. Pt did have brief periods of tearfulness but pt was able to redirected back to topic of conversation. Pt spoke of having a great amount of fear. Discussed this further. This sports writer offered support and encouragement. Assisted pt in recognizing pt's improvement. Discussed discharge. Pt voiced that he is fearful of returning home to silence but pt also expressed that he absolutely does not want to live in a longterm. Discussed the benefits of having a pet such as a cat. This has been discussed previously. Pt stated that possibly he and his girlfriend Krys could pick out a cat together. This sports writer asked pt to work on a daily schedule for when pt returns home. Will plan to review this with pt tomorrow.
--- NOTE | 2020-08-19 15:39 | NUR ---
Shift chart check completed.
--- NOTE | 2020-08-19 15:41 | NUR ---
PM GROUP PT ATTENDED AFTERNOON GROUP THERAPY AND PARTICIPATED BY COLORING AND SOCIALIZING. PT WAS ABLE TO CONCENTRATE ON ONE TASK WHILE CONSTANTLY QUESTIONING THIS SR. MANAGER ABOUT HIS ILLNESS, RUMINATING, AND LOOKING FOR REASSURANCE. PT WAS TAKEN FROM THE ROOM BY THE INFRASTRUCTURE DESIGN ENGINEER AND DID NOT RETURN.
[2020-08-19 19:10] VITALS: BP 131/84
--- NOTE | 2020-08-19 21:54 | NUR ---
P-ANXIOUS, PREOCCUPIED I-REDIRECTION WITH 1:1 THERAPEUTIC INTERVENTIONS AND PRESENT REALITY. EDUCATE AND ENCOURAGE MEDICATION COMPLIANCE R-PATIENT MEDICATION COMPLIANT AT HS. PATIENT PROVIDED NOURISHMENT AND FLUIDS AT HS. PATIENT INTERACTING WITH PEERS IN DINING AREA. PATIENT ANXIOUS AND PREOCCUPIED WITH DOING A THANKSGIVING ACTIVITY ON PRIOR SHIFT. PATIENT PROVIDED REDIRECTION WITH EFFECTIVE RESULTS. PATIENT WITH NO HALLUCINATIONS OR DELUSIONS. PATIENT WITH NO HOMICIDAL OR SUICIDAL IDEATIONS. P-CONTINUE TO ENCOURAGE MEDICATION COMPLIANCE, CONTINUE TO PRESENT REALITY, ENCOURAGE GROUP THERAPY WHILE AWAKE
--- NOTE | 2020-08-20 06:30 | NUR ---
PATIENT SLEPT >8 HOURS OF UNINTERRUPTED SLEEP THROUGHOUT SHIFT. Q 15 MINUTE CHECKS MAINTAINED. 24 HR chart check completed.
[2020-08-20 07:30] VITALS: BP 112/67
--- NOTE | 2020-08-20 09:00 | NUR ---
Treatment Plan meeting was held this a.m. with CHELSIE Lee, RN, AT, SIMONE-S and Shoe Patternmaker in attendance. Plan for discharge Possible Wednesday. Pt. will return home.
--- NOTE | 2020-08-20 10:44 | NUR ---
Spoke with pt's employment case manager Tate Wheat and informed him of pt's discharge Tate stated that he would transport pt to pt's car at 14:00 tomorrow and then follow pt back to pt's apartment.
--- NOTE | 2020-08-20 11:43 | NUR ---
AM GROUP PT ATTENDED MORNING GROUP THERAPY AND PARTICIPATED IN ALL ACITIVITES. PT WAS MUCH BRIGHTER AND OPTIMISTIC TODAY, PT DID NOT RUMINATE OR EXPRESS UNRATIONAL ANXIETY. PT ONLY EXPRESSED BEING AFRAID TO GO HOME. PT WAS CALM, FOCUSED AND PURPOSEFUL.
--- NOTE | 2020-08-20 15:05 | NUR ---
PM GROUP PT ATTENDED AFTERNOON GROUP THERAPY AND PARTICIPATED BY WORKING A JIGSAW PUZZLE AND SOCIALIZING. PT WAS INFORMED THAT HE WOULD BE DISCHARGED TOMORROW BY THE COMPUTER ANALYST SUPERVISOR AND SPENT MOST OF GROUP THERAPY ASKING ME IF THERE WERE INSTANCES WHERE A PATIENT COULD STAY LONGER? PT WAS TOLD THAT GOING HOME WAS INEVITABLE AND PT AGREED WITH THE INSIGHT THAT NO MATTER HIS DISCHARGE DATE, HE WOULD STILL BE APPREHENSIVE.
--- NOTE | 2020-08-20 17:49 | NUR ---
P: PATIENT APPEARS TO BE ANXIOUS ABOUT GOING HOME AND TRYING TO UTILIZE COPING SKILLS. REPEATEDLY COMING UP TO NURSE WITH CONCERNS. I: ONE ON ONE FOR EMOTIONAL SUPPORT, POSITIVE REINFORCEMENT PROVIDED. ENCOURAGE PATIENT TO CONTINUE ROUTINE SCHEDULE LIKE THE ONE PROVIDED HERE. PATIENT INSTRUCTION AT THE TIME OF DISCHARGE PATIENT WOULD HAVE FOLLOW UP APPOINTMENT WITH PRIMARY CARE AND PSYCHIARTY PROVIDED. MEDICATIONS REVIEWED WITH PATIENT PROVIDING EDUCATION WITH TIMES THAT MEDICATION SHOULD BE TAKEN. MUCH ENCOURAGEMENT PROVIDED THROUGHOUT THE DAY. R: EFFECTIVE. PATIENT STILL CONTINUES TO BE UNSURE, CONTINUE TO ENCOURAGE PATIENT TO FOLLOW ROUTINE AND PROVIDE EMOTIONAL SUPPORT NEEDED. PATIENT IS ALERT TO PERSON, PLACE, TIME AND SITUATION; ABLE TO VOICE NEEDS. MOOD IS ANXIOUS; STATES HE IS FEELING BETTER, PATIENT IS PREOCCUPIED. DENIES HALLUCINATIONS, DELUSIONS, HI/SI OR PAIN. MEDICATION COMPLAINT WITH EDUCATION PROVIDED. Q 15 MINUTE SAFETY CHECKS MAINTAINED. INDEPENDENT WITH ACTIVITIES OF DAILY LIVING, CONTINENT OF BOWEL AND BLADDER, SET UP FOR MEALS, INTAKES ARE GOOD WITH ADEQUATE FLUIDS. AMBULATORY WITH STEADY GAIT. P: CONTINUE TO MONITOR MOOD. PROVIDE ONE ON ONE FOR EMOTIONAL SUPPORT. ENCOURAGE DEEP BREATHING, WALKING TO CLEAR HEAD AND REST NEEDED.
[2020-08-20 19:54] VITALS: BP 111/88
--- NOTE | 2020-08-20 23:57 | NUR ---
P-ANXIOUS. I-1:1 EMOTIONAL SUPPORT PROVIDED, POSITIVE REINFORCEMENT PROVIDED. ADMINISTERED MEDICATIONS PRESCRIBED AND EDUCATION PROVIDED. R-PT ACCEPTED THERAPEUTIC INTERVETIONS. PT IS ANXIOUS ABOUT GOING HOME BUT DOES ADMIT HE LOOKS FORWARD TO GETTING HOME. MEDICATION COMPLIANT. P-WILL CONTINUE TO ENCOURAGE USE OF COPING SKILLS. WILL CONTINUE POSITIVE REINFORCEMENT. Q 15 MIN CHECKS MAINTAINED AND PRN.
--- NOTE | 2020-08-21 05:47 | NUR ---
PT SLEPT PAST 2200. 24 HR chart check completed.
[2020-08-21 07:56] VITALS: BP 121/69
--- NOTE | 2020-08-21 08:30 | NUR ---
Treatment Plan meeting was held this a.m. with Dr. Traylor via telephone, CHELSIE Lee RN, AT, SHOE PARTS CASER-S and Oil Seal Assembler in attendance. Plan for discharge today. Pt. will return home.
--- NOTE | 2020-08-21 09:00 | NUR ---
CONNIE IQBAL CNP ON UNIT TO ASSESS PATIENT AND AWARE OF PATIENT BEING DISCHARGED.
[2020-08-21] MEDS ORDERED: CLONAZEPAM0.5 M2 PO (09:25)
[2020-08-21] MEDS ORDERED: METHYLPHENIDATE10 M1 PO (09:35)
--- NOTE | 2020-08-21 11:49 | NUR ---
AM GROUP PT ATTENDED MORNING GROUP THERAPY AND PARTICIPATED BY WORKING ON A WATERCOLOR. PT WAS SURPRISINGLY CALM AND EXPRESSED NO ANXIETY ABOUT BEING DISCHARGED FROM THE UNIT TODAY.
--- NOTE | 2020-08-21 12:00 | NUR ---
DISCHARGE INSTRUCTION REVIEWED WITH PATIENT AND SIGNED. ALL BELONGING GATHERED AND SIGNED FOR. PATEINT FINISHING LUNCH AND GETTING READY FOR DISCHARGED SCHEDULED AT 2PM.
--- NOTE | 2020-08-21 12:37 | NUR ---
Follow up appointment scheduled with [facility] with Therapist 08/23/2020 at 9:00 a.m. and Nurse Practitioner Lydia Schmid 08/27/2020 3:00 p.m. for Medication Management. Pt. Surgical Elastic Knitter Hand Frame will provide transportation. Nurse from [facility] Clint Beckford will assist with Medication Box Management at Home.
--- NOTE | 2020-08-21 12:42 | NUR ---
Left Message for Clint Beckford RN with [facility] to Notify of discharge today.
--- NOTE | 2020-08-21 12:47 | NUR ---
Discharge Paperwork faxed to [facility]
--- NOTE | 2020-08-21 14:20 | NUR ---
PATIENT RIDE AT [facility]. PATIENT ASSISTED TO WHEELCHAIR. ALL BELONGING GATHERED AND DISCHARGE INSTRUCTIONS PROVIDED TO PATIENT. PATIENT ASSISTED OFF UNIT WITH STAFF TO PRIVATE VEHILCE.
== END 2020-08-21 14:20 | disposition home or self-care (01) | DRG 885 ==
LOC: 3N 15:43
PROVIDERS: ADMIT Psychiatry & Neurology Psychiatry; ATTEND Psychiatry & Neurology Psychiatry
DX: F33.2 Major depressive disorder, recurrent severe without psychotic features (principal); E44.0 Moderate protein-calorie malnutrition; F41.9 Anxiety disorder, unspecified; F42.9 Obsessive-compulsive disorder, unspecified; F98.8 Other specified behavioral and emotional disorders with onset usually occurring in childhood and adolescence; F90.9 Attention-deficit hyperactivity disorder, unspecified type; I10 Essential (primary) hypertension; E78.5 Hyperlipidemia, unspecified; F41.0 Panic disorder [episodic paroxysmal anxiety]; D64.9 Anemia, unspecified; I95.1 Orthostatic hypotension; Z88.1 Allergy status to other antibiotic agents; Z85.46 Personal history of malignant neoplasm of prostate; Z79.899 Other long term (current) drug therapy; Z68.22 Body mass index [BMI] 22.0-22.9, adult